=== PATIENT | female | born 1985 | race African-American/Black ===

== ENCOUNTER 2019-01-31 12:24 | Emergency (ER) | payer OTHER ==
[2019-01-31 12:36] VITALS: BP 115/69; PULSE 104; TEMP 97.8; BMI 31.6
--- NOTE | 2019-01-31 13:16 | PDOC ---
History of Present Illness - General Chief Complaint: Pain, Acute Stated Complaint: CONSTIPATION / Time Seen by Provider: 01/31/19 13:15 - History of Present Illness Initial Comments: 01/31/19 13:15 33 yo female 8-10 weeks with no significant PMH presents with 4 days of constipation and significant sharp pain which began earlier today while straining in attempt to have a bowel movement. She states she has had an uncomplicated and is normally able to have 1-2 bowel movements per day until 4 days ago. She denies any burning on urination, however she does state she is only able to urinate when straining to have a bowel movement and has had decreased feeling of needing to urinate the last few days since the constipation began. She denies any episodes of constipation previously during the and denies ever having any pain like this before. She does endorse some crampy abdominal pain that began today after this episode. She denies any bleeding from her rectum, vagina, or any bleeding noted in her urine. She denies any nausea, vomiting, significant abdominal pain. Past History - Past Medical History Allergies/Adverse Reactions: Allergies Allergy/AdvReac Type Severity Reaction Status Date / Time No Known Allergies Allergy Verified 01/31/19 12:31 Home Medications: Ambulatory Orders NK [No Known Home Medication] 01/31/19 COPD: No - Suicide/Smoking/Psychosocial Hx Smoking History: Never smoked *Physical Exam - Vital Signs Last Vital Signs Temp Pulse Resp BP Pulse Ox 97.8 F 104 H 22 H 115/69 98 01/31/19 12:31 01/31/19 12:31 01/31/19 12:31 01/31/19 12:31 01/31/19 12:31 - Physical Exam Comments: 01/31/19 13:15 GEN: A&O, mild distress likely due to pain, pt unable to sit during exam 2/2 pain HEENT: moist mucus membranes NECK: supple HEART: Tachycardic, no murmur noted LUNGS: CTA b/l ABDOMEN: Soft, nontender to palpation, normoactive bowel sounds EXTREMITIES: no peripheral edema Moderate Sedation - Procedure Monitoring Vital Signs: Procedure Monitoring Vital Signs Temperature 97.8 F 01/31/19 12:31 Pulse Rate 104 H 01/31/19 12:31 Respiratory Rate 22 H 01/31/19 12:31 Blood Pressure 115/69 01/31/19 12:31 O2 Sat by Pulse Oximetry (%) 98 01/31/19 12:31 Medical Decision Making - Medical Decision Making 01/31/19 13:55 33 yo female presents with 4 days constipation and worsening rectal pain today on straining to have a bowel movement. Rectal exam negative for fissure or thrombosed hemmorrhoid, however positive for significant amount of stool in the rectal vault. Will give Fleet enema for now and reassess Tylenol 1000 mg PO to assist with pain control 01/31/19 14:25 Pt with good relief following tylenol, currently in bathroom with enema, will reassess following enema administration. 01/31/19 15:02 Pt with complete relief following enema administration and states she would like to go home. Will give one dose Mag Citrate and d/c with instructions to f/ u with OB for further recommendations of constipation during . *DC/Admit/Observation/Transfer Diagnosis at time of Disposition: Constipation during - Discharge Dispostion Disposition: HOME Condition at time of disposition: Stable Decision to Admit order: No - Referrals - Patient Instructions Printed Discharge Instructions: DI for Constipation Additional Instructions: You were seen in the emergency room with constipation and pain. You were given tylenol for the pain and an enema for the constipation. At this point your pain has completely resolved. You should call/follow up with your OB doctor for recommendations of medications you can take to prevent further constipation, however you should eat a diet high in fiber, fruits, and vegetables and make sure that you are drinking plenty of water. You should follow up with your OB doctor within 1-2 weeks or if you have any further complaints. If you have any severe pain that returns or if you note any bleeding you should return to the emergency room or be evaluated by your doctor. - Post Discharge Activity
[2019-01-31] MEDS ORDERED: SODIUM PHOSPHATE/NA BIPHOS 133 ML ENEMA PR ONE (13:51)
[2019-01-31] MEDS ORDERED: ACETAMINOPHEN 500 MG TABLET (FP) PO ONE (13:52)
[2019-01-31] MEDS ORDERED: ACETAMINOPHEN 325 MG TABLET (FP) ONE (13:57)
--- NOTE | 2019-01-31 14:49 | PDOC ---
Documentation entered by Bettie Piper SCRIBE, acting as scribe for Naty Messina MD. Attending Attestation - Resident Resident Name: Eugenio Sung - [facility] HPI: 01/31/19 13:42 The patient is a 33 year old female, 8-10 weeks , with no significant past medical history, who presents to the emergency department with 4 days of constipation despite use of softener and new onset of sharp rectal pain while straining to move bowels today. She denies any rectal bleeding. Secondarily, she reports mild abdominal cramping after experiencing the rectal pain today. The patient denies chest pain, shortness of breath, headache and dizziness. The patient denies fever, chills, nausea, vomit, diarrhea. The patient denies dysuria, frequency, urgency and hematuria. She denies vaginal discharge or bleeding. Allergies: NKDA - Physicial Exam PE: 01/31/19 14:47 awake alert tearful. lungs clear bilaterally heart rrr no mrg abd soft nt nd. ext wwp. rectal exam Dr Sung present, hard stool in vault. can feel internal hemorrhoids, no thrombosis. no fissure. no fluctuance. no erythema. or palp abscess. - Medical Decision Making 01/31/19 14:48 33 yo F with , severe constipation. plan likley enema, severe constipation from hormonal changes. will obtain bedside ob us eval well being tylenol focused ED us OB performed. heart rate 163 bpm, IUP. no free fluid noted. impression: live IUP. pt feels improved followign enema. Naty Messina MD: This documentation has been prepared by the Feliz fox Amanda, SCRIBE, under my direction and personally reviewed by me in its entirety. I confirm that the documentation accurately reflects all work, treatment, procedures, and medical decision making performed by me.
[2019-01-31] MEDS ORDERED: MAGNESIUM CITRATE 300 ML BOTTLE PO ONE (15:07)
== END 2019-01-31 15:23 | disposition home or self-care (01) ==
LOC: JER 12:24
DX: O26.891 Other specified pregnancy related conditions, first trimester (principal); Z3A.08 8 weeks gestation of pregnancy; K59.00 Constipation, unspecified
CPT/HCPCS: 99283-25

== ENCOUNTER 2019-08-13 06:40 | Inpatient (IN) | payer OTHER ==
[2019-08-13 07:29] VITALS: BMI 39.9
[2019-08-13] MEDS ORDERED: SUCCINYLCHOLINE CHLORIDE 200 MG/10 ML SYRINGE ONE (07:43)
[2019-08-13] MEDS ORDERED: PROPOFOL 20 ML ONE (07:43)
[2019-08-13] MEDS ORDERED: ELECTROLYTE-148 SOLN 500 ML IV ONE (08:24)
[2019-08-13] MEDS ORDERED: CITRIC ACID/SODIUM CITRATE 30 ML UNIT-DOSE CUP PO ONE (08:25)
--- NOTE | 2019-08-13 08:28 | HP ---
Past Medical History - Admission History of Present Illness: 33yo @ 39wks by anju, JEFF 08/18/19 here for scheduled RLTCS No VB/LOF. No ctx. +FM Preg c/b: +THC use, prior C/S History Source: Patient Limitations to Obtaining History: No Limitations - Past Medical History WORKING SECOND HAND: No: Alzheimer's, CVA, Dementia, Migraine, Multiple Sclerosis, Peripheral Neuropathy, Parkinson's, Seizure, Syncope, TIA, Vertigo, Other Cardiovascular: No: AFIB, Aneurysm, Aortic Insufficiency, Aortic Stenosis, CAD, CHF, Deep Vein Thrombosis, HTN, Hyperlipdemia, MS, Mitral Insufficiency, Mitral Stenosis, Murmur, Pulmonary Hypertension, Other Pulmonary: No: Asthma, Bronchitis, Cancer, COPD, O2 Dependent, Pneumonia, Previously Intubated, Pulmonary Embolus, Pulmonary Fibrosis, Sleep Apnea, Other Gastrointestinal: No: Ascites, Cancer, Constipation, Crohn's Disease, Diverticulitis, Diverticulosis, Esophageal Varices, Gastritis, GERD, GI Bleed, Hemorrhoids, Hiatal Hernia, Inflamatory Bowel Disease, Irritable Bowel Disease, Pancreatitis, Peptic Ulcer Disease, Ulcerative Colitis, Other Hepatobiliary: No: Cirrhosis, Cholelithiasis, Cholecystitis, Choledocholithiasis , Hepatitis A, Hepatitis B, Hepatitis C, Other Renal/: No: Renal Failure, Renal Inusuff, BPH, Cancer, Hematuria, Hemodialysis , Neurogenic Bladder, Renal Calculi, UTI, Other ...: 5 ...Para: 1 ...Term: 1 ...: 0 ...Spon : 0 ...Induced : 3 ...Multiple Gestation: 0 ...LMP: 11/24/18 ... Weeks Gestation by Dates: 37.3 ...EDC by Dates: 08/31/19 ...EDC by Danielo: 08/18/19 Heme/Onc: Yes: Anemia Infectious Disease: No: AIDS, C-Diff, Herpes Zoster, HIV, MRSA, STD's, Tuberculosis, VREF, Other Psych: No: Addictions, Anxiety, Bipolar, Depression, Panic, Psychosis, Schizophrenia, Other Musculoskeletal: No: Bursitis, Chronic low back pain, Hemiparesis, Hemiplegia, Osteoarthritis, Paraplegia, Other Rheumatology: No: Fibromyalgia, Gout, Lupus, Rheumatoid Arthritis, Sarcoidosis, Vasculitis, Other ENT: No: Allergic Rhinitis, Sinusitis, Other Endocrine: No: [place]'s Disease, [place]'s Disease, Diabetes Insipidus, Diabetes Mellitus, Hyperparathyroidism, Hyperthyroidism, Hypothyroidism, Osteopenia, SIADH, Other Dermatology: No: Basal Cell, Cellulitis, Eczema, Melanoma, Psoriasis, Squamous Cell, Other - Past Surgical History Past Surgical History: Yes: Hx Myomectomy: No Hx Transabdominal Cerclage: No - Smoking History Smoking history: Former smoker Have you smoked in the past 12 months: Yes Aproximately how many cigarettes per day: 6 If you are a former smoker, when did you quit?: 11/2018 - Alcohol/Substance Use Hx Alcohol Use: No History of Substance Use: reports: Marijuana - Social History Usual Living Arrangement: Yes: With Significant Other ADL: Independent History of Recent Travel: No Home Medications - Allergies Allergies/Adverse Reactions: Allergies Allergy/AdvReac Type Severity Reaction Status Date / Time No Known Drug Allergies Allergy Verified 08/13/19 07:16 shellfish derived Allergy Hives Verified 08/13/19 07:15 - Home Medications Home Medications: Ambulatory Orders 19 Tablet 1 tab PO DAILY 08/13/19 Review of Systems - Review of Systems Constitutional: denies: No Symptoms, Chills, Diaphoresis, Fever, Lethargy, Loss of Appetite, Malaise, Night Sweats, Unintentional Wgt. Loss, Weakness, Other Cardiovascular: denies: No Symptoms, Chest Pain, Edema, Palpitations, Shortness of Breath, Other Respiratory: denies: No Symptoms, Cough, Exercise Intolerance, Hemoptysis, Orthopnea, PND, Snoring, SOB, SOB on Exertion, Wheezing, Other Gastrointestinal: denies: No Symptoms, Abdominal Pain, Bloating, Constipation, Diarrhea, Dysphagia, Indigestion, Melena, Nausea, Rectal Bleeding, Vomiting, Vomiting Blood, Other Genitourinary: denies: No Symptoms, Burning, Discharge, Dysuria, Flank Pain, Frequency, Hematuria, Incontinence, Lesions, Menses, Pain, Testicular Mass, Testicular Pain, Testicular Swelling, Urgency, Vaginal Bleeding, Other Physical Exam - Maternity Vital Signs: Vital Signs Temperature 98.3 F 08/13/19 07:19 Pulse Rate 77 08/13/19 07:19 Respiratory Rate 20 08/13/19 07:19 Blood Pressure 105/60 08/13/19 07:19 O2 Sat by Pulse Oximetry (%) - Abdominal Exam/OB Number of Fetuses: Single Presentation: Vertex Category: I Accelerations: Non-Uniform Decelerations: None - Vaginal Exam/OB Vaginal Bleediing: No - Physical Exam Edema: No Assessment/Plan 33yo @ 39wks here for scheduled RLTCS Admit to L&D NPO, IVFs Ancef SCDs Risk of procedure reviewed, including bleeding, infection and injury to bladder/ bowel/adnexa/vessels and nerves. All questions answered. Flakita Art MD
[2019-08-13] MEDS ORDERED: morphine SULFATE/PF 0.5 MG/ML (2cc Syringe - QUVA) ONE (08:32)
[2019-08-13] MEDS ORDERED: ePHEDrine SULFATE 50 MG/1 ML AMPULE ONE (08:35)
[2019-08-13] MEDS ORDERED: OXYTOCIN 20 UNITS in 0.9% NS 20 UNIT/1,000 ML INFUS.BAG IV ONE ×2 (08:47→09:34)
[2019-08-13] MEDS ORDERED: oxyCODONE HCL 5 MG TABLET PO PRN (09:35)
[2019-08-13] MEDS ORDERED: METHYLERGONOVINE MALEATE 0.2 MG/1 ML AMP IM PRN (09:35)
--- NOTE | 2019-08-13 09:38 | OP ---
Operative Note - Note: Operative Date: 08/13/19 Pre-Operative Diagnosis: 39week , Prior , Desires ERCS Operation: Repeat Low Transverse Findings: VMI, NAOMI position, no nuchal, no meconium. Apgars 9/9. Weight pending Normal tubes and ovaries bilaterally Post-Operative Diagnosis: Same as Pre-op Surgeon: Cass Art Manager Diesel: Norm Sheriff Anesthesia: Spinal Estimated Blood Loss (mls): 800 Drains, Volume Out (mls): 100 (clear urine) Operative Report Dictated: Yes
[2019-08-13] MEDS: OXYTOCIN 20 UNITS in 0.9% NS 20 UNIT/1,000 ML INFUS.BAG IV SCH ×2 (09:45→15:00)
[2019-08-13] MEDS ORDERED: ONDANSETRON 4 MG/2 ML VIAL IVPUSH PRN ×2 (09:58→10:04)
[2019-08-13] MEDS ORDERED: morphine SULFATE/PF 0.5 MG/ML (2cc Syringe - QUVA) EP ONE (10:04)
--- NOTE | 2019-08-13 10:25 | OP ---
DATE OF OPERATION: 08/13/2019 PREOPERATIVE DIAGNOSIS: 39-week , prior section, desires elective repeat section. POSTOPERATIVE DIAGNOSIS: 39-week , prior section, desires elective repeat section. PROCEDURE: Repeat low transverse section. ANESTHESIA: Spinal. INTRAVENOUS FLUIDS: Per anesthesia record. ESTIMATED BLOOD LOSS: 800. SURGEON: Cass Art MD SUPERVISOR PACKING ROOM: GABINO Cheng URINE OUTPUT: 100 mL of clear urine at the end of the procedure. FINDINGS: Viable male , NAOMI position. No nuchal. No meconium. Apgars 9, 9. Weight pending. Normal tubes and ovaries bilaterally. COMPLICATIONS: None. CONDITION: Stable to recovery room. DESCRIPTION OF PROCEDURE: After the appropriate consents were signed, the patient was taken to the operating room. Spinal anesthesia was administered. She was placed in supine position. The abdomen was prepped and draped in a normal sterile fashion. A sterile Askew catheter had been inserted prior to entry into the operating room. Anesthesia was confirmed. Time-out was performed confirming correct patient and procedure. A Pfannenstiel incision was made through the prior incision and carried through to the underlying layers until the fascia was nicked in the midline. The fascia was then extended laterally with the Tinsley scissors. The inferior aspect of the fascia was grasped with the Thalia clamps, tented upwards, and the rectus muscles dissected off bluntly and with the Tinsley scissors. Attention was then paid to the superior aspect, which was taken down in a similar fashion. The rectus muscles were bluntly in the midline. The peritoneum was entered bluntly. Bladder blade was then inserted. Bladder flap was created with the Metzenbaum scissors and digitally the bladder blade was readjusted. The uterus was incised in a low transverse fashion. Membranes were identified, ruptured for clear fluid. Infant's head was delivered without difficulty as were the remaining shoulder and body. The infant was then handed off to the awaiting pediatric staff. The cord had been clamped and cut prior to hand off. The placenta was then removed manually. The uterus was cleared of all clot and debris. The uterus was exteriorized and closed in 2 layers with a 1-0 Vicryl with good hemostasis. Uterus was then returned to the abdominal cavity, and area of bleeding on the patient's left hysterotomy was reinforced with a 1-0 Vicryl with good hemostasis. Muscles were closed with a 2-0 chromic. Fascia was closed with a 0 Vicryl. Skin was closed with a 3-0 Biosyn. All sponge, lap, needle counts were correct x3. The patient did receive 2 g of Ancef at the start of the procedure. She was taken from the operating room to the recovery area in stable condition. MD DIANE FLORES/[id number]
[2019-08-13] MEDS: ELECTROLYTE-148 SOLN 1,000 ML IV SCH (10:34)
[2019-08-13] MEDS ORDERED: ONDANSETRON 4 MG/2 ML VIAL IVPUSH ONE (12:30)
[2019-08-13] MEDS: IBUPROFEN 600 MG TABLET (FP) PO PRN (21:52)
[2019-08-13] MEDS: SIMETHICONE 80 MG TAB.CHEW (FP) PO PRN (21:52)
[2019-08-13] MEDS: ACETAMINOPHEN 325 MG TABLET (FP) PO PRN (21:52)
--- NOTE | 2019-08-14 07:10 | PN ---
Post Progress Note - Subjective Subjective: Not yet ambulating, tolerating PO, lochia decreased, dacosta out Post Day: 1 Type of Delivery: Repeat C/S Vital Signs: Vital Signs Temperature 98.2 F 08/14/19 06:00 Pulse Rate 79 08/14/19 06:00 Respiratory Rate 18 08/14/19 06:00 Blood Pressure 111/68 08/14/19 06:00 O2 Sat by Pulse Oximetry (%) 97 08/13/19 10:45 Breast Exam: Yes: Other (deferred) Uterus: Yes: Fundus Firm Incision: Yes: Sutures intact (dressing removed) Abdomen/GI: Yes: Abdomen soft Lochia, amount: Moderate Extremities: Yes: Calves non-tender - Labs Labs: labs pending Assessment/Plan POD # 1 in stable condition, PP/post-op precautions discussed -Encourage ambulation -Continue post-op care
[2019-08-14] MEDS: IBUPROFEN 600 MG TABLET (FP) PO PRN ×3 (08:22→22:09)
[2019-08-14 08:23] LABS: BASO % 0.5 % (0-2.0); EOS % 0.6 % (0-4.5); HEMOGLOBIN 8.9 GM/dL (10.7-15.3); LYMPH % 9.6 % (8-40); MCH 27.9 pg (25.7-33.7); MEAN CELL VOLUME 87.1 fl (80-96); MEAN PLT VOLUME 8.6 fl (7.5-11.1); NEUT % 82.3 % (42.8-82.8); PLATELET COUNT 208 K/MM3 (134-434); RBC 3.21 M/mm3 (3.60-5.2); RDW 15.3 % (11.6-15.6); WHITE BLOOD COUNT 10.5 K/mm3 (4.0-10.0)
[2019-08-14] MEDS: ACETAMINOPHEN 325 MG TABLET (FP) PO PRN ×3 (08:23→22:08)
[2019-08-14] MEDS: SIMETHICONE 80 MG TAB.CHEW (FP) PO PRN ×3 (08:23→22:09)
[2019-08-14] MEDS ORDERED: BISACODYL 10 MG SUPP.RECT RC PRN (09:35)
[2019-08-14] MEDS: OXYTOCIN 20 UNITS in 0.9% NS 20 UNIT/1,000 ML INFUS.BAG IV SCH (10:15)
--- NOTE | 2019-08-14 13:47 | PN ---
Progress Note (short form) - Note Progress Note: POD 1 c/s under spinal with duramorph. Patient doing well, no nausea/vomiting, pain well controlled. Patient c/o puritus but does not wish to treat with benadryl due to potential sedation. Encouraged patient to ask for medication as needed.
[2019-08-15] MEDS: SIMETHICONE 80 MG TAB.CHEW (FP) PO PRN ×3 (08:28→19:55)
[2019-08-15] MEDS: IBUPROFEN 600 MG TABLET (FP) PO PRN ×3 (08:28→19:54)
[2019-08-15] MEDS: ACETAMINOPHEN 325 MG TABLET (FP) PO PRN ×3 (08:30→19:52)
[2019-08-15] MEDS: ELECTROLYTE-148 SOLN 1,000 ML IV SCH (09:38)
--- NOTE | 2019-08-15 12:16 | PN ---
Post Progress Note - Subjective Subjective: c/o pain scale 6/10 Post Day: 2 Type of Delivery: Repeat C/S Vital Signs: Vital Signs Temperature 98.2 F 08/14/19 22:00 Pulse Rate 86 08/14/19 22:00 Respiratory Rate 20 08/14/19 22:00 Blood Pressure 97/69 08/14/19 22:00 O2 Sat by Pulse Oximetry (%) 97 08/13/19 10:45 Breast Exam: Yes: Soft, Other (Bottle feeding ). No: Engorged Uterus: Yes: Fundus Firm, Fundus below umbilicus, Non-tender Incision: Yes: Sutures intact (intradermal with steristrips covering incision ) . No: Redness, Oozing Abdomen/GI: Yes: Abdomen soft, Passing flatus, Tolerating PO (diet). No: Abdominal Distention, Tender Lochia: Yes: Rubra Lochia, amount: Moderate Extremities: Yes: Calves non-tender Perineum: Yes: Intact Activity: Ambulating - Labs Labs: CBC WBC 10.5 K/mm3 (4.0-10.0) H 08/14/19 07:50 RBC 3.21 M/mm3 (3.60-5.2) L 08/14/19 07:50 Hgb 8.9 GM/dL (10.7-15.3) L 08/14/19 07:50 Hct 28.0 % (32.4-45.2) L D 08/14/19 07:50 MCV 87.1 fl (80-96) 08/14/19 07:50 MCH 27.9 pg (25.7-33.7) 08/14/19 07:50 MCHC 32.0 g/dl (32.0-36.0) 08/14/19 07:50 RDW 15.3 % (11.6-15.6) 08/14/19 07:50 Plt Count 208 K/MM3 (134-434) 08/14/19 07:50 MPV 8.6 fl (7.5-11.1) 08/14/19 07:50 Absolute Neuts (auto) 8.7 K/mm3 (1.5-8.0) H 08/14/19 07:50 Neutrophils % 82.3 % (42.8-82.8) 08/14/19 07:50 Lymphocytes % 9.6 % (8-40) D 08/14/19 07:50 Monocytes % 7.0 % (3.8-10.2) 08/14/19 07:50 Eosinophils % 0.6 % (0-4.5) 08/14/19 07:50 Basophils % 0.5 % (0-2.0) 08/14/19 07:50 Nucleated RBC % 0 % (0-0) 08/14/19 07:50 Problem List - Problems (1) Status post section routine follow-up Code(s): Z39.2 - ENCOUNTER FOR ROUTINE FOLLOW-UP; Z98.891 - HISTORY OF UTERINE SCAR FROM PREVIOUS SURGERY Assessment/Plan PO day #2 post Rc/s stable anemia , pt asymptomatic Plan Ct PO care pt not sure about going home tomorrow.
--- NOTE | 2019-08-15 18:17 | PATH ---
Surgical Pathology Report Patient Name: AFUA POTTER Med. Rec. 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 Electronically Signed Diana Tomlin M.D. Gross Description The specimen is received fresh labeled placenta and is a 887 gram, 23 x 17 x 1 cm. placenta with attached membranes and umbilical cord. The attached membranes are clear and translucent and insert marginally. The umbilical cord measures 50 cm. in length and averages 1.5 cm. in diameter. The cord inserts eccentrically, 6 cm. to the nearest margin. No true knots or strictures are identified. Cut surface of the umbilical cord reveals 3 vessels. The surface is christiansen-blue with minimal fibrin deposition and appropriate caliber vessels. The maternal surface is red-brown with focal defects. Sectioning reveals red-brown, spongy parenchyma. No lesions are identified. Apparatus Operator sections are submitted in three cassettes as follows: 1- membrane rolls and umbilical cord; 2-3- full thickness sections of placenta. MLSZ/08/14/2019 sanml/08/14/2019
[2019-08-16] MEDS: IBUPROFEN 600 MG TABLET (FP) PO PRN ×3 (03:22→13:25)
[2019-08-16] MEDS: ACETAMINOPHEN 325 MG TABLET (FP) PO PRN ×3 (03:22→13:24)
[2019-08-16] MEDS: SIMETHICONE 80 MG TAB.CHEW (FP) PO PRN (03:23)
[2019-08-16 07:42] LABS: BASO % 0.6 % (0-2.0); EOS % 1.4 % (0-4.5); HEMATOCRIT 27.1 % (32.4-45.2); HEMOGLOBIN 8.6 GM/dL (10.7-15.3); LYMPH % 14.1 % (8-40); MCH 27.8 pg (25.7-33.7); MCHC 31.8 g/dl (32.0-36.0); MEAN CELL VOLUME 87.5 fl (80-96); MONO % 5.4 % (3.8-10.2); NEUT % 78.5 % (42.8-82.8); PLATELET COUNT 275 K/MM3 (134-434); RBC 3.09 M/mm3 (3.60-5.2); RDW 14.8 % (11.6-15.6); WHITE BLOOD COUNT 9.2 K/mm3 (4.0-10.0)
--- NOTE | 2019-08-16 08:16 | PN ---
Post Progress Note - Subjective Subjective: Pain controlled. No fevers/chills. No N/V. Voiding freely. +Flatus. Ambulating w /o difficulty Post Day: 3 Type of Delivery: Repeat C/S Vital Signs: Vital Signs Temperature 98.5 F 08/15/19 22:00 Pulse Rate 74 08/15/19 22:00 Respiratory Rate 18 08/15/19 22:00 Blood Pressure 114/60 08/15/19 22:00 O2 Sat by Pulse Oximetry (%) 97 08/13/19 10:45 Breast Exam: Yes: Soft Uterus: Yes: Fundus below umbilicus Incision: Yes: Dressing dry and intact, Sutures intact Abdomen/GI: Yes: Abdomen soft, Passing flatus, Tolerating PO Lochia: Yes: Rubra Lochia, amount: Small Extremities: Yes: Calves non-tender Perineum: Yes: Intact Activity: Ambulating - Labs Labs: CBC WBC 10.5 K/mm3 (4.0-10.0) H 08/14/19 07:50 RBC 3.21 M/mm3 (3.60-5.2) L 08/14/19 07:50 Hgb 8.9 GM/dL (10.7-15.3) L 08/14/19 07:50 Hct 28.0 % (32.4-45.2) L D 08/14/19 07:50 MCV 87.1 fl (80-96) 08/14/19 07:50 MCH 27.9 pg (25.7-33.7) 08/14/19 07:50 MCHC 32.0 g/dl (32.0-36.0) 08/14/19 07:50 RDW 15.3 % (11.6-15.6) 08/14/19 07:50 Plt Count 208 K/MM3 (134-434) 08/14/19 07:50 MPV 8.6 fl (7.5-11.1) 08/14/19 07:50 Absolute Neuts (auto) 8.7 K/mm3 (1.5-8.0) H 08/14/19 07:50 Neutrophils % 82.3 % (42.8-82.8) 08/14/19 07:50 Lymphocytes % 9.6 % (8-40) D 08/14/19 07:50 Monocytes % 7.0 % (3.8-10.2) 08/14/19 07:50 Eosinophils % 0.6 % (0-4.5) 08/14/19 07:50 Basophils % 0.5 % (0-2.0) 08/14/19 07:50 Nucleated RBC % 0 % (0-0) 08/14/19 07:50 Assessment/Plan 33yo s/p RLTCS, POD#3 Routine PP care OOB, ambulate Labs reviewed Po iron D/C to home by POD#4 Flakita Art MD
[2019-08-16 09:04] VITALS: BP 114/64; PULSE 78; TEMP 97.9
== END 2019-08-16 15:40 | disposition home or self-care (01) | DRG 540 ==
LOC: JLDR 06:40 → J3W 11:41
PROVIDERS: ADMIT Obstetrics & Gynecology; ATTEND Obstetrics & Gynecology
PROC: 10D00Z1 Extraction of Products of Conception, Low, Open Approach (ICD-10-PCS; principal; 2019-08-13)
DX: O34.219 Maternal care for unspecified type scar from previous cesarean delivery (principal); Z3A.39 39 weeks gestation of pregnancy; Z37.0 Single live birth
CPT/HCPCS: 36415; 85025; 88307-TC

== ENCOUNTER 2021-05-05 11:34 | Emergency (ER) | payer OTHER ==
[2021-05-05 11:40] VITALS: BP 143/73; PULSE 96; TEMP 98.6; BMI 71.8
[2021-05-05 12:58] LABS: EPI CELLS 36 /uL (0-25.1); HYALINE CASTS 4 /uL (0-3.1); URINE APPEARANCE TURBID; URINE BACTERIA 3838 /uL (0-1359); URINE BILIRUBIN 1+ (NEGATIVE); URINE COLOR DK YELLOW; URINE GLUCOSE (UA) NEGATIVE (NEGATIVE); URINE KETONE TRACE (NEGATIVE); URINE LEUK ESTERASE 3+ (NEGATIVE); URINE NITRITE NEGATIVE (NEGATIVE); URINE PROTEIN 3+ (NEGATIVE); URINE WBC 9908 /uL (0-25.8)
[2021-05-05 13:18] LABS: HCG,QUALITATIVE URINE Negative
[2021-05-05 15:51] LABS: URINE RBC 372 /uL (0-23.9); YEAST NONE SEEN (NEGATIVE)
== END 2021-05-05 13:20 | disposition home or self-care (01) ==
LOC: JER 11:34
DX: R30.0 Dysuria (principal); R10.9 Unspecified abdominal pain
CPT/HCPCS: 81003; 84703; 87086; 87186; 99284-25

== ENCOUNTER 2021-07-28 15:45 | Emergency (ER) | payer OTHER ==
[2021-07-28 16:15] VITALS: BP 121/79; PULSE 66; TEMP 98.6; BMI 34.0
== END 2021-07-28 17:13 | disposition home or self-care (01) ==
LOC: JERFT 15:45
DX: M25.561 Pain in right knee (principal); X50.3XXA Overexertion from repetitive movements, initial encounter; Y93.01 Activity, walking, marching and hiking
CPT/HCPCS: 73562-TC-RT-FY; 99283-25